=== PATIENT | female | born 1980 | race Two or more races ===

== ENCOUNTER 2025-06-07 13:29 | Outpatient (CLI) | payer OTHER ==
[~2025-06-07 13:29] MED LIST: ARTHRITIS PAIN150 G1 TOP; NABUMETONE750 MG PO
== END 2025-06-07 13:38 | disposition home or self-care (01) ==
LOC: MRI 13:29
PROVIDERS: ATTEND Physical Medicine & Rehabilitation
DX: S93.422A Sprain of deltoid ligament of left ankle, initial encounter (principal)
CPT/HCPCS: 73721